=== PATIENT | female | born 1950 | race Caucasian/White ===

== ENCOUNTER 2022-10-18 12:32 | Emergency (ER) | payer MEDICARE, OTHER ==
[~2022-10-18] VITALS: Ht 157 cm; Wt 86.2 kg
[2022-10-18] MEDS ORDERED: HYDROcodone/ACETAMINOPHEN 5 MG/325 MG TABLET PO ONE (13:00)
[2022-10-18] MEDS ORDERED: Tetanus/Diphtheria/Pertussis (Acell) ADULT Vaccine 0.5 ML IM ONE (13:00)
--- NOTE | 2022-10-18 13:00 | ED Fall/Injury ---
General Chief Complaint: Trauma-Non Activation Stated Complaint: HEAD/SHOULDER INJ Nursing Triage Note: pt presents to ED after having a fall and landing on concrete. pt has abrasion to left eyebrow and pain in right shoulder. pt not on thinners and denies LOC. Source: patient Exam Limitations: no limitations History of Present Illness Date Seen by Provider: Oct 18, 2022 Time Seen by Provider: 12:52 Initial Comments Patient is here with report of fall at [facility]. She is walking and tripped over a carpet and fell and landed on her left side but may have hit her right shoulder going down. She does have abrasion to left brow with bleeding controlled. No loss of consciousness. Does note some mild neck pain her main pain is in her right shoulder. Unsure of last tetanus. Denies pain to the chest, abdomen, pelvis or lower extremities. Occurred: just prior to arrival (My 30 minutes prior to arrival) Severity: moderate Injuries/Pain Location: face, neck, upper extremity Context: tripped Loss of Consciousness: no loss of consciousness Modifying Factors: Improves With Immobilization; Worse With Movement Associated Symptoms (Fall): No Abdominal Pain, No Chest Pain, No Confusion; Headache; No Nausea/Vomiting; Neck Pain; No Shortness of Air, No Vision Changes Allergies and Home Medications Allergies Coded Allergies: No Known Drug Allergies (Unverified , 10/18/22) Patient Home Medication List Home Medication List Reviewed: Yes Review of Systems Review of Systems Constitutional: see HPI; No chills, No fever Ears, Nose, Mouth, Throat: no symptoms reported Respiratory: no symptoms reported Cardiovascular: no symptoms reported Musculoskeletal: joint pain, muscle pain Skin: change in color (Into the left brow), lesions Past Sstopll-Ehvuzb-Tsediy Hx Patient Social History Tobacco Use?: Yes Tobacco type used: Cigarettes Smoking Status: Current Everyday Smoker Substance use?: No Alcohol Use?: No Pt feels they are or have been: No Past Medical History Surgeries: No High Cholesterol, Hypertension Neurological: Yes Endocrine: Yes Hypothyroidsim Psychosocial: Yes Family Medical History No Pertinent Family Hx Physical Exam Vital Signs Vital Signs - First Documented 10/18/22 12:40 Temp 36.5 Pulse 68 Resp 22 B/P (MAP) 169/96 (120) Pulse Ox 96 O2 Delivery Room Air Capillary Refill : Height, Weight, BMI Height: '" Weight: lbs. oz. kg; 34.00 BMI Method: General Appearance: WD/WN, mild distress HEENT: PERRL/EOMI, TMs normal, pharynx normal Neck: full range of motion, supple, tender lateral Cardiovascular: regular rate, rhythm, no murmur Respiratory: lungs clear, normal breath sounds Gastrointestinal: non tender, soft Back: normal inspection, no CVA tenderness, no vertebral tenderness Extremities: pelvis stable, other (To right proximal humerus and right shoulder area with decreased range of motion due to pain. Clavicle intact and no deformity noted on right.) Neurologic/Psychiatric: alert, oriented x 3 Skin: warm/dry, ecchymosis (Brow), other (Superficial abrasion above left eyebrow with bleeding controlled.) Brielle Coma Score Best Eye Response: (4) Open Spontaneously Best Verbal Response: (5) Oriented Best Motor Response: (6) Obeys Commands Progress/Results/Core Measures Results/Orders My Orders Orders - DEVORA TENORIO MD Dipht/Pertuss(Acell)/Tet Adult (Dipht/Pe (10/18/22 13:00) Hydrocodone/Apap 5/325 Tablet (Hydrocod (10/18/22 13:00) Shoulder, Right, 3 Views (10/18/22 12:58) Humerus, Right, 2 Views (10/18/22 12:58) Ct Head/Cervical Spine Wo (10/18/22 12:58) Fentanyl Injection (Fentanyl Injection (10/18/22 13:55) Medications Given in ED Current Medications Medications Dose Ordered Sig/Nas Route Start Time Stop Time Status Last Admin Dose Admin Acetaminophen/ Hydrocodone Bitart 1 ea ONCE ONCE PO 10/18/22 13:00 10/18/22 13:01 DC 10/18/22 13:07 1 EA Diphtheria/ Tetanus/Acell Pertussis 0.5 ml ONCE ONCE IM 10/18/22 13:00 10/18/22 13:01 DC 10/18/22 13:07 0.5 ML Vital Signs/I&O 10/18/22 12:40 Temp 36.5 Pulse 68 Resp 22 B/P (MAP) 169/96 (120) Pulse Ox 96 O2 Delivery Room Air Blood Pressure Mean: 120 Progress Progress Note : Progress Note Seen and evaluated. We will get CT of the head and neck as well as x-rays of the right humerus and shoulder. Tetanus to be updated. Hydrocodone 5/325 1 tab p.o. now for pain. Monitor patient. Differential diagnosis includes intracranial hemorrhage, C-spine injury, shoulder dislocation, proximal humerus fracture, abrasion 1400: I have added fentanyl 50 mcg IM for pain. I have reviewed x-ray and do note proximal humerus fracture on my interpretation. No shoulder dislocation on shoulder x-ray on my interpretation. No intracranial hemorrhage noted on CT of the head on my interpretation and C-spine shows degeneration without fracture on my interpretation for CT of the C-spine. See radiology report below which agrees. We will apply sling to the right arm and I will send outpatient prescription for hydrocodone. 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 Discharged home with return precautions. Patient and family verbalized understanding instructions and agreement with plan. Diagnostic Imaging Diagonstic Imaging: CT Plain Films/CT/US/NM/MRI: c-spine, head Comments [facility], [place] NAME: JANAK LOVE [facility] REC#: [id number] PT STATUS: REG ER : 1950 PHYSICIAN: DEVORA TENORIO MD ADMIT DATE: 10/18/22/ER Draft Date of Exam:10/18/22 CT HEAD/CERVICAL SPINE WO EXAMINATION: CT head and CT cervical spine without contrast. TECHNIQUE: Multiple contiguous axial images were obtained through the brain and cervical spine without the use of intravenous contrast. Sagittal and coronal reformations through the cervical spine were then performed. All CT scans use one or more of the following dose optimizing techniques: automated exposure control, MA and/or KvP adjustment based on patient size and exam type or iterative reconstruction. HISTORY: Head and neck injury. COMPARISON: None available. FINDINGS: The aguirre-white matter differentiation is normal. No mass effect or midline shift. The ventricles are normal in size and configuration. Basilar cisterns are patent. There are no intra- or extra-axial fluid collections. There is no intracranial hemorrhage. The orbits are normal. Paranasal sinuses are normal. Mastoid air cells are clear. No soft tissue abnormality is seen. No osseus lesions or fractures are seen. The alignment of the cervical spine is normal. No fracture is seen. Vertebral body heights are normal. The craniocervical junction is normal. There is moderate degenerative disease in the cervical spine. There is disc height loss at C5-C6. There is moderate facet arthropathy. There is no spinal canal stenosis. No soft tissue abnormality is seen in the neck. Limited views of the superior thorax are normal. IMPRESSION: 1. No acute intracranial abnormality. 2. No cervical spine fracture. Dictated on workstation # [id number] Dict: 10/18/22 1330 Trans: 10/18/22 1337 [facility] [id number] Interpreted by: MARY FIORE MD Electronically signed by: Diagonstic Imaging: Xray Plain Films/CT/US/NM/MRI: other Comments [facility], [place] NAME: JANAK LOVE [facility] REC#: [id number] PT STATUS: REG ER : 1950 PHYSICIAN: DEVORA TENORIO MD ADMIT DATE: 10/18/22/ER Signed Date of Exam:10/18/22 SHOULDER, RIGHT, 3 VIEWS EXAMINATION: Multiple views of the right shoulder pain. TECHNIQUE: AP, oblique, and lateral views of the right shoulder obtained. HISTORY: shoulder pain COMPARISON: None available. FINDINGS: Acute displaced fracture of the proximal right humerus. The right glenohumeral joint is intact. Included views of the chest and straight no significant abnormality. IMPRESSION: Acute displaced fracture of the proximal right humerus. Dictated by: Dictated on workstation # [id number] Dict: 10/18/22 1339 Trans: 10/18/22 1341 [facility] [place] [id number] Interpreted by: TOYA NARANJO DO Electronically signed by: TOYA NARANJO DO 10/18/22 134 Diagonstic Imaging: Xray Plain Films/CT/US/NM/MRI: other Comments [facility] [place] NAME: JANAK LOVE [facility] REC#: [id number] PT STATUS: REG ER : 1950 PHYSICIAN: DEVORA TENORIO MD ADMIT DATE: 10/18/22/ER Draft Date of Exam:10/18/22 HUMERUS, RIGHT, 2 VIEWS EXAMINATION: Right humerus 2 views HISTORY: Arm injury COMPARISON: None available. FINDINGS: There is a mildly displaced humeral head fracture. No dislocation. Elbow alignment is normal. IMPRESSION: 1. Mildly displaced humeral head fracture. Dictated on workstation # [id number] Dict: 10/18/22 1337 Trans: 10/18/22 1339 [facility] [id number] Interpreted by: MARY FIORE MD Electronically signed by: Departure Impression Primary Impression: Closed right humeral fracture Qualified Codes: S42.201A - Unspecified fracture of upper end of right humerus, initial encounter for closed fracture Additional Impressions: Minor head injury Qualified Codes: S09.90XA - Unspecified injury of head, initial encounter Neck strain Qualified Codes: S16.1XXA - Strain of muscle, fascia and tendon at neck level, initial encounter Disposition: HOME, SELF-CARE Condition: Stable Departure-Patient Inst. Decision time for Depature: 14:04 Referrals: NO,LOCAL PHYSICIAN (PCP) Primary Care Physician Patient Instructions: Upper Arm Fracture ED, Minor Head Injury, Adult ED, Neck Pain ED Add. Discharge Instructions: All discharge instructions reviewed with patient and/or family. Voiced understanding. Wear sling at all times except when bathing. Keep your arm down in front of you without rotation until cleared by orthopedics. Take medications as directed. If you are not taking the prescribed pain medicine, you may take Tylenol/acetaminophen 1000 mg every 6 hours as needed for pain. Do not take both at the same time as they both have acetaminophen in them. You may use ice packs to area of concern 20 minutes/h as needed to reduce pain over the next 1 to 2 days. Follow-up with orthopedist of your choice at your hometown. Call office on Wednesday for appointment. Return for worse pain, swelling, weakness, vomiting, vision or balance problems or other concerns as needed. Scripts Hydrocodone/Acetaminophen (Hydrocodone-Acetamin 5-325 mg) 5 Mg-325 Mg Tablet 1 TAB PO Q6H PRN for PAIN-MODERATE (5-7) for 7 Days, #14 TAB 0 Refills Prov: DEVORA TENORIO MD 10/18/22 DEVORA TENORIO MD Oct 18, 2022 13:00
--- NOTE | 2022-10-18 13:38 | Diagnostic Imaging Report ---
EXAMINATION: CT head and CT cervical spine without contrast. TECHNIQUE: Multiple contiguous axial images were obtained through the brain and cervical spine without the use of intravenous contrast. Sagittal and coronal reformations through the cervical spine were then performed. All CT scans use one or more of the following dose optimizing techniques: automated exposure control, MA and/or KvP adjustment based on patient size and exam type or iterative reconstruction. HISTORY: Head and neck injury. COMPARISON: None available. FINDINGS: The aguirre-white matter differentiation is normal. No mass effect or midline shift. The ventricles are normal in size and configuration. Basilar cisterns are patent. There are no intra- or extra-axial fluid collections. There is no intracranial hemorrhage. The orbits are normal. Paranasal sinuses are normal. Mastoid air cells are clear. No soft tissue abnormality is seen. No osseus lesions or fractures are seen. The alignment of the cervical spine is normal. No fracture is seen. Vertebral body heights are normal. The craniocervical junction is normal. There is moderate degenerative disease in the cervical spine. There is disc height loss at C5-C6. There is moderate facet arthropathy. There is no spinal canal stenosis. No soft tissue abnormality is seen in the neck. Limited views of the superior thorax are normal. IMPRESSION: 1. No acute intracranial abnormality. 2. No cervical spine fracture. Dictated by: Dictated on workstation # [id number]
--- NOTE | 2022-10-18 13:39 | Diagnostic Imaging Report ---
EXAMINATION: Right humerus 2 views HISTORY: Arm injury COMPARISON: None available. FINDINGS: There is a mildly displaced humeral head fracture. No dislocation. Elbow alignment is normal. IMPRESSION: 1. Mildly displaced humeral head fracture. Dictated by: Dictated on workstation # [id number]
--- NOTE | 2022-10-18 13:42 | Diagnostic Imaging Report ---
EXAMINATION: Multiple views of the right shoulder pain. TECHNIQUE: AP, oblique, and lateral views of the right shoulder obtained. HISTORY: shoulder pain COMPARISON: None available. FINDINGS: Acute displaced fracture of the proximal right humerus. The right glenohumeral joint is intact. Included views of the chest and straight no significant abnormality. IMPRESSION: Acute displaced fracture of the proximal right humerus. Dictated by: Dictated on workstation # [id number]
[2022-10-18] MEDS ORDERED: fentaNYL INJECTION 100 MCG/2 ML VIAL IM STA (13:55)
[2022-10-18] MEDS ORDERED: ACHD5005 PO (14:05)
[2022-10-18 14:34] VITALS: BP 164/81
== END 2022-10-18 14:35 | disposition home or self-care (01) ==
LOC: ER 12:36
DX: S09.90XA Unspecified injury of head, initial encounter (principal); S42.301A Unspecified fracture of shaft of humerus, right arm, initial encounter for closed fracture; S16.1XXA Strain of muscle, fascia and tendon at neck level, initial encounter; S00.12XA Contusion of left eyelid and periocular area, initial encounter; F17.210 Nicotine dependence, cigarettes, uncomplicated; Z23 Encounter for immunization; W10.8XXA Fall (on) (from) other stairs and steps, initial encounter
CPT/HCPCS: 70450; 72125; 73030; 73060; 90715